=== PATIENT | female | born 1965 | race Caucasian/White ===

== ENCOUNTER 2017-05-08 09:50 | Emergency (ER) | payer MEDICAID ==
[~2017-05-08] VITALS: Ht 154.9 cm; Wt 66.5 kg
[~2017-05-08 09:50] MED LIST: ALBU8HFA BC; ONDA4TAB6 PO; PRED20TA BC; QUET300T3 PO; RISP3TAB11 PO; ZOLP5TAB8 PO
[2017-05-08 10:21] VITALS: BP 114/63
== END 2017-05-08 11:47 | disposition home or self-care (01) ==
LOC: ER 09:51
DX: R05 Cough (principal); F17.200 Nicotine dependence, unspecified, uncomplicated; G89.29 Other chronic pain; F15.90 Other stimulant use, unspecified, uncomplicated; Z98.51 Tubal ligation status; Z59.0 Homelessness; Z56.0 Unemployment, unspecified
CPT/HCPCS: 99281

== ENCOUNTER 2017-06-12 23:43 | Emergency (ER) | payer MEDICAID ==
[~2017-06-12] VITALS: Ht 154.9 cm; Wt 56.5 kg
[2017-06-13 04:32] VITALS: BP 123/59
== END 2017-06-13 04:36 | disposition home or self-care (01) ==
LOC: ER 23:44
DX: F10.129 Alcohol abuse with intoxication, unspecified (principal); G89.29 Other chronic pain; F15.10 Other stimulant abuse, uncomplicated; Z59.0 Homelessness; Z56.0 Unemployment, unspecified; Z79.899 Other long term (current) drug therapy; Y90.9 Presence of alcohol in blood, level not specified
CPT/HCPCS: 99281; A6449

== ENCOUNTER 2017-06-15 04:10 | Emergency (ER) | payer MEDICAID ==
[~2017-06-15] VITALS: Ht 154.9 cm; Wt 65.5 kg
[2017-06-15 04:12] VITALS: BP 152/69
[2017-06-15] MEDS ORDERED: CEPH500C5 PO (07:48)
== END 2017-06-15 08:29 | disposition home or self-care (01) ==
LOC: ER 04:11
DX: L30.9 Dermatitis, unspecified (principal); F17.200 Nicotine dependence, unspecified, uncomplicated; F15.10 Other stimulant abuse, uncomplicated; G89.29 Other chronic pain; Z59.0 Homelessness; Z56.0 Unemployment, unspecified; Z79.899 Other long term (current) drug therapy
CPT/HCPCS: 99283

== ENCOUNTER 2017-06-17 18:48 | Emergency (ER) | payer MEDICAID ==
[~2017-06-17] VITALS: Ht 154.9 cm; Wt 63.6 kg
[~2017-06-17 18:48] MED LIST changes: +CEPH500C5 PO
[2017-06-17 19:16] VITALS: BP 111/53
== END 2017-06-17 19:18 | disposition home or self-care (01) ==
LOC: ER 18:48
DX: R23.8 Other skin changes (principal); R50.9 Fever, unspecified; J00 Acute nasopharyngitis [common cold]; G89.29 Other chronic pain; F15.10 Other stimulant abuse, uncomplicated; Z79.899 Other long term (current) drug therapy; Z59.0 Homelessness; Z56.0 Unemployment, unspecified
CPT/HCPCS: 99281

== ENCOUNTER 2017-06-19 20:57 | Emergency (ER) | payer MEDICAID ==
[~2017-06-19] VITALS: Ht 154.9 cm; Wt 66.0 kg
[2017-06-19 23:14] VITALS: BP 126/82
== END 2017-06-19 23:16 | disposition home or self-care (01) ==
LOC: ER 20:58
DX: Z00.8 Encounter for other general examination (principal); F15.10 Other stimulant abuse, uncomplicated; G89.29 Other chronic pain; Z59.0 Homelessness; Z56.0 Unemployment, unspecified; Z98.51 Tubal ligation status
CPT/HCPCS: 99281

== ENCOUNTER 2017-06-24 21:20 | Emergency (ER) | payer MEDICAID ==
[~2017-06-24] VITALS: Ht 154.9 cm; Wt 68.0 kg
[2017-06-24 22:24] VITALS: BP 130/85
== END 2017-06-24 22:25 | disposition home or self-care (01) ==
LOC: ER 21:20
DX: Z13.89 Encounter for screening for other disorder (principal); J02.9 Acute pharyngitis, unspecified; R05 Cough; R50.9 Fever, unspecified
CPT/HCPCS: 99281

== ENCOUNTER 2018-03-03 09:30 | Inpatient (IN) | payer MEDICAID ==
[~2018-03-03] VITALS: Ht 154.9 cm; Wt 56.8 kg
[2018-03-03 09:39] VITALS: BP 97/55
[2018-03-03 12:19] LABS: URINE HCG NEGATIVE (NEG)
[2018-03-03 13:38] LABS: BASOPHILS # (AUTO) 0.1 X10'3 (0-0.2); BASOPHILS % (AUTO) 0.8 % (0-1); EOSINOPHILS # (AUTO) 0.2 X10'3 (0-0.9); EOSINOPHILS % (AUTO) 2.6 % (0-6); HEMATOCRIT 35.9 % (35.0-45.0); HEMOGLOBIN 11.8 g/dl (12.0-16.0); LYMPHOCYTES # (AUTO) 1.9 X10'3 (1.1-4.8); LYMPHOCYTES % (AUTO) 26.8 % (21-51); MEAN CORPUSCULAR HEMOGLOBIN 28.6 PG (27.0-31.0); MEAN CORPUSCULAR VOLUME 86.9 FL (78-98); MEAN PLATELET VOLUME 7.5 FL (7.4-10.4); MONOCYTES # (AUTO) 0.4 X10'3 (0-0.9); MONOCYTES % (AUTO) 5.4 % (2-12); NEUTROPHILS # (AUTO) 4.5 X10'3 (1.8-7.7); NEUTROPHILS % (AUTO) 64.4 % (42-75); PLATELET COUNT 413 X10'3 (140-440); RED BLOOD COUNT 4.13 X10'6 (4.20-5.60); RED CELL DISTRIBUTION WIDTH 13.8 % (11.5-14.5)
[2018-03-03] MEDS ORDERED: normal saline 1000ml 1,000 ML IV SCH (13:51)
[2018-03-03 13:53] LABS: ALANINE AMINOTRANSFERASE 15 U/L (12-78); ALBUMIN/GLOBULIN RATIO 0.8 (1.1-1.5); ALKALINE PHOSPHATASE 78 IU/L (46-116); ANION GAP 7 (8-16); ASPARTATE AMINO TRANSFERASE 13 U/L (10-37); BILIRUBIN,TOTAL 0.4 MG/DL (0.1-1.0); BLOOD UREA NITROGEN 14 MG/DL (7-18); BUN/CREATININE RATIO 20.9 (6.6-38.0); CALCIUM 8.9 MG/DL (8.5-10.1); CHLORIDE 103 MMOL/L (99-107); CREATININE 0.67 MG/DL (0.40-0.90); GLUCOSE 90 MG/DL (70-104); POTASSIUM 3.8 MMOL/L (3.5-5.1); SODIUM 139 MMOL/L (135-145); TOTAL CARBON DIOXIDE 28.9 MMOL/L (24-32); TOTAL PROTEIN 6.8 G/DL (6.4-8.2); eGFR > 90 ML/MIN
[2018-03-03] MEDS ORDERED: morphine 2 MG/ML inj. syringe IV PRN ×2 (13:55)
[2018-03-03] MEDS ORDERED: magnesium hydroxide 30ml (MOM) UD suspension PO PRN (13:55)
[2018-03-03] MEDS ORDERED: ondansetron/PF 4mg/2ml inj IV PRN (13:55)
[2018-03-03] MEDS ORDERED: HYDROcodone/acetaminophen 10/325mg tab PO PRN (13:55)
[2018-03-03] MEDS ORDERED: acetaminophen 325mg tablet PO PRN (13:55)
[2018-03-03] MEDS ORDERED: mag hydrox/Alum hydrox/simeth 30ml oral suspension PO PRN (13:55)
[2018-03-03] MEDS ORDERED: HYDROcodone/acetaminophen 5mg/325mg tablet PO PRN (13:55)
[2018-03-03 14:07] LABS: PARTIAL THROMBOPLASTIN TIME 27 SECONDS (22-32); PROTHROMBIN TIME 10.2 SECONDS (9.0-12.0)
[2018-03-03] MEDS ORDERED: normal saline 1000ML IV soln IVB ONE (14:40)
[2018-03-03 14:48] LABS: CLARITY,URINE TURBID (Clear); COLOR,URINE STRAW (Yellow); GLUCOSE, URINE NEGATIVE (Neg); KETONES,URINE NEGATIVE (Neg); LEUKOCYTE ESTERASE ,URINE LARGE (Neg); NITRITES, URINE NEGATIVE (Neg); OCCULT BLOOD,URINE TRACE-INTACT (Neg); PH,URINE 5.5 (4.8-8.0); PROTEIN,URINE NEGATIVE (Neg); UA COLLECTION TYPE FOLEY CATH; UROBILINOGEN,URINE 0.2 E.U/dL (0.2-1.0)
[2018-03-03 14:55] LABS: MUCUS STRANDS NONE SEEN /LPF (Neg); SQUAMOUS EPITHELIAL CELL,UR MANY /LPF (FEW)
[2018-03-03 14:58] LABS: RBC,URINE 0-2 /HPF (0-2); TRICHOMONAS,URINE MOD /HPF (NEGATIVE); WBC,URINE TNTC /HPF (0-4)
[2018-03-03 14:59] LABS: BACTERIA,URINE 3+ /HPF (Neg); TRANSITIONAL EPI CELLS,URINE FEW /HPF
[2018-03-03] MEDS ORDERED: QUET25TA PO (15:52)
[2018-03-03] MEDS ORDERED: FLUP2.5T PO (16:46)
== END 2018-03-03 18:16 | disposition left against medical advice (07) | DRG 340 ==
LOC: ER 09:30 → ED HOLD 13:51
PROVIDERS: ADMIT Internal Medicine; ATTEND Internal Medicine
DX: S72.002A Fracture of unspecified part of neck of left femur, initial encounter for closed fracture (principal); F20.9 Schizophrenia, unspecified; W18.39XA Other fall on same level, initial encounter; F32.9 Major depressive disorder, single episode, unspecified; G89.29 Other chronic pain; Z53.21 Procedure and treatment not carried out due to patient leaving prior to being seen by health care provider; Z87.891 Personal history of nicotine dependence; Z98.51 Tubal ligation status; Y93.89 Activity, other specified; Y92.89 Other specified places as the place of occurrence of the external cause; Z59.0 Homelessness; Y99.8 Other external cause status
CPT/HCPCS: 36415; 71045; 73502; 80053; 81001; 81025; 85025; 85610; 85730; 86885; 86900; 86901; 87070; 87088; 93005; 99285; G0378